=== PATIENT | female | born 1940 | race Caucasian/White ===

== ENCOUNTER 2021-07-27 10:43 | Outpatient (CLI) | payer MEDICARE | END 2021-07-27 10:44 | disposition home or self-care (01) | LOC: CSHMAMMO 10:43 | PROVIDERS: ATTEND Internal Medicine | DX: Z12.31 Encounter for screening mammogram for malignant neoplasm of breast (principal); Z80.3 Family history of malignant neoplasm of breast; Z85.41 Personal history of malignant neoplasm of cervix uteri | CPT/HCPCS: 77063; 77067 ==

== ENCOUNTER 2021-12-18 10:39 | Observation (INO) | payer MEDICARE ==
[2021-12-18 11:52] LABS: #Eosinphils 0.1 10x3/uL (0.0-0.5); #Monocytes 0.4 10x3/uL (0.0-1.1); #Neutrophils 3.5 10x3/uL (1.5-8.4); %Basophils 0.7 % (0.0-2.0); %Eosinophils 1.6 % (0.0-6.0); %Lymphocytes 29.5 % (18.0-47.0); %Monocytes 6.2 % (0.0-10.0); %Neutrophils 61.6 % (40.0-75.0); Hemoglobin 14.3 g/dL (12.0-15.5); Mean Corpuscular HGB CONC 33.8 g/dL (32.0-36.0); Mean Corpuscular Hemoglobin 31.5 pg (27.0-33.0); Mean Corpuscular Volume 93.2 fl (81.6-98.3); Mean Platelet Volume 9.3 fl (7.4-10.4); Platelet Count 207 10x3/uL (150-450); RBC Distribution Width 12.4 % (11.5-14.5); Red Blood Cell (RBC) Count 4.54 10x6/uL (3.90-5.03); White Blood Cell (WBC) Count 5.7 10x3/uL (3.5-10.5)
[2021-12-18 12:02] LABS: ALT (SGPT) 16 U/L (8-55); AST (SGOT) 24 U/L (5-34); Albumin 4.3 g/dL (3.4-4.8); Alkaline Phosphatase 104 U/L (40-110); Anion Gap 14 mmol/L (10-20); BUN (Urea Nitrogen) 16 mg/dL (9.8-20.1); Bilirubin, Total 0.4 mg/dL (0.2-1.2); Calc. Creatinine Clearance 0 mL/min (70-130); Calcium 9.6 mg/dL (7.8-10.44); Carbon Dioxide 24 mmol/L (23-31); Chloride 108 mmol/L (98-107); Globulin 2.7 g/dL (2.4-3.5); Glucose 129 mg/dL (83-110); Potassium 3.7 mmol/L (3.5-5.1); Sodium 142 mmol/L (136-145)
[2021-12-18] MEDS ORDERED: Aspirin Chewable 81 MG TAB ONE (13:27)
[2021-12-18] MEDS ORDERED: Senokot S 8.6-50 MG TAB PO PRN (13:53)
[2021-12-18 14:17] LABS: Magnesium 2.1 mg/dL (1.6-2.6)
[2021-12-18] MEDS ORDERED: Iopamidol 370 76% 100 ML VIAL ONE (14:20)
[2021-12-18 15:11] LABS: Troponin I Less than 0.010 ng/mL (< 0.028)
[2021-12-18 17:31] VITALS: BMI 22.6
[2021-12-18 17:55] LABS: Troponin I Less than 0.010 ng/mL (< 0.028)
[2021-12-18] MEDS: Famotidine 20 MG TAB PO SCH (20:05)
[2021-12-18] MEDS ORDERED: Simvastatin 10 MG TAB PO SCH (21:00)
[2021-12-19 04:30] LABS: #Basophils 0.1 10x3/uL (0.0-0.2); #Eosinphils 0.2 10x3/uL (0.0-0.5); #Monocytes 0.7 10x3/uL (0.0-1.1); #Neutrophils 3.9 10x3/uL (1.5-8.4); %Eosinophils 2.5 % (0.0-6.0); %Lymphocytes 34.1 % (18.0-47.0); %Monocytes 8.9 % (0.0-10.0); %Neutrophils 53.4 % (40.0-75.0); Mean Corpuscular HGB CONC 33.7 g/dL (32.0-36.0); Mean Corpuscular Volume 92.2 fl (81.6-98.3); Mean Platelet Volume 9.1 fl (7.4-10.4); Platelet Count 206 10x3/uL (150-450); RBC Distribution Width 12.6 % (11.5-14.5); Red Blood Cell (RBC) Count 4.51 10x6/uL (3.90-5.03); White Blood Cell (WBC) Count 7.3 10x3/uL (3.5-10.5)
[2021-12-19 04:51] LABS: Anion Gap 12 mmol/L (10-20); BUN (Urea Nitrogen) 15 mg/dL (9.8-20.1); Calc. Creatinine Clearance 58 mL/min (70-130); Calcium 9.4 mg/dL (7.8-10.44); Carbon Dioxide 26 mmol/L (23-31); Cardiac Risk 3.4 (Less than 4.5); Chloride 108 mmol/L (98-107); Cholesterol 176 mg/dl (< 200 Desired); Glucose 111 mg/dL (83-110); HDL Cholesterol 52 mg/dL (>60 Neg Risk); LDL Cholesterol, Calculated 108 mg/dL; Potassium 3.6 mmol/L (3.5-5.1); Sodium 142 mmol/L (136-145); Triglycerides 82 mg/dL (Less than 150)
[2021-12-19] MEDS: Famotidine 20 MG TAB PO SCH (08:16)
[2021-12-19] MEDS ORDERED: Aspirin 81 mg Enteric Coated Tablet PO SCH (09:00)
[2021-12-19] MEDS ORDERED: Enoxaparin Sodium 40 MG/0.4 ML SYRINGE SC SCH (09:00)
[2021-12-19] MEDS ORDERED: Losartan Potassium 50 MG TAB PO SCH (09:00)
[2021-12-19 14:45] VITALS: BP 151/77; TEMP 97
[2021-12-19 16:09] LABS: SARS-CoV-2 PCR by NAA Not Detected (NotDetected)
[2021-12-19] MEDS ORDERED: Doxazosin 2 MG TAB PO SCH (21:00)
[2021-12-20] MEDS ORDERED: Aspirin 81 mg Enteric Coated Tablet PO SCH (09:00)
[2021-12-20] MEDS ORDERED: Bisacodyl 5 MG TAB PO SCH (09:00)
[2021-12-20] MEDS ORDERED: Cholecalciferol 1,000 UNITS (25 MCG) TAB PO SCH (09:00)
== END 2021-12-19 16:45 | disposition home or self-care (01) ==
LOC: CSHERS 10:39 → CSHTELE 14:45
PROVIDERS: ADMIT Hospitalist; ATTEND Hospitalist
DX: R07.89 Other chest pain (principal); R55 Syncope and collapse; R06.00 Dyspnea, unspecified; M79.605 Pain in left leg; I10 Essential (primary) hypertension; E78.2 Mixed hyperlipidemia; K44.9 Diaphragmatic hernia without obstruction or gangrene; R91.1 Solitary pulmonary nodule; Z79.82 Long term (current) use of aspirin; Z79.899 Other long term (current) drug therapy; Z20.822 Contact with and (suspected) exposure to COVID-19
CPT/HCPCS: 71275; 80048; 80061; 83735; 83880; 84484 ×2; 85025; 93005 ×2; 93306; 93971; 96372; 97139 ×2; 99285; G0378 ×3; U0003; U0005; 36415; 80053; 84443; 93010; J1650; Q9967

== ENCOUNTER 2022-07-29 10:56 | Outpatient (CLI) | payer MEDICARE | END 2022-07-29 10:57 | disposition home or self-care (01) | LOC: CSHMAMMO 10:56 | PROVIDERS: ATTEND Obstetrics & Gynecology | DX: Z12.31 Encounter for screening mammogram for malignant neoplasm of breast (principal); Z80.3 Family history of malignant neoplasm of breast; Z85.41 Personal history of malignant neoplasm of cervix uteri | CPT/HCPCS: 77063; 77067 ==

== ENCOUNTER 2023-08-16 10:24 | Outpatient (CLI) | payer MEDICARE | END 2023-08-16 10:25 | disposition home or self-care (01) | LOC: CSHMAMMO 10:24 | PROVIDERS: ATTEND Obstetrics & Gynecology | DX: Z12.31 Encounter for screening mammogram for malignant neoplasm of breast (principal); Z13.820 Encounter for screening for osteoporosis; M85.89 Other specified disorders of bone density and structure, multiple sites; Z85.41 Personal history of malignant neoplasm of cervix uteri; Z80.3 Family history of malignant neoplasm of breast | CPT/HCPCS: 77063; 77067; 77080 ==

== ENCOUNTER 2024-08-24 11:42 | Outpatient (CLI) | payer MEDICARE | END 2024-08-24 11:43 | disposition home or self-care (01) | LOC: CSHMAMMO 11:42 | PROVIDERS: ATTEND Obstetrics & Gynecology | DX: Z12.31 Encounter for screening mammogram for malignant neoplasm of breast (principal); Z80.3 Family history of malignant neoplasm of breast; Z85.41 Personal history of malignant neoplasm of cervix uteri | CPT/HCPCS: 77063; 77067 ==